=== PATIENT | female | born 1950 | race Two or more races ===

== ENCOUNTER 2020-09-30 11:30 | Inpatient (IN) | payer OTHER ==
[~2020-09-30] VITALS: Ht 162.6 cm; Wt 77.1 kg
[2020-09-30] MEDS ORDERED: COZAAR100 MG PO (15:52)
[2020-09-30] MEDS ORDERED: NORVASC5 MG PO (15:52)
[2020-09-30] MEDS ORDERED: BREO ELLIPTA 21 EACH IH (15:53)
[2020-09-30] MEDS ORDERED: PEPCID AC10 MG PO (15:53)
[2020-09-30] MEDS ORDERED: CRESTOR20 MG PO (15:53)
[2020-09-30] MEDS ORDERED: CLARITIN-D 241 EACH PO (15:53)
[2020-10-06] MEDS ORDERED: MONTELUKAST SOD10 MG (07:57)
[2020-10-06] MEDS ORDERED: PROAIR HFA8.5 GM (07:57)
[2020-10-06] MEDS ORDERED: BREO ELLIPTA I1 EACH (07:57)
[2020-10-06] MEDS ORDERED: FAMOTIDINE20 MG (07:58)
[2020-10-09] MEDS ORDERED: PRILOSEC OTC20 MG PO ×2 (10:34)
[2020-10-09] MEDS ORDERED: ULTRACET PO ×2 (10:34)
[2020-11-16] MEDS ORDERED: BREO IH (14:25)
[2020-11-16] MEDS ORDERED: PEPCID (14:26)
[2020-11-16] MEDS ORDERED: [UNRECOGNIZED DRUG - OTHER] PO (14:26)
== END 2020-10-09 11:55 | disposition home or self-care (01) | DRG 330 ==
LOC: O/R 10-06 05:59 → SURH 10-06 05:59
PROVIDERS: ADMIT Surgery; ATTEND Surgery
PROC: 0DBN0ZZ Excision of Sigmoid Colon, Open Approach (ICD-10-PCS; 2020-10-06)
PROC: 07BC0ZX Excision of Pelvis Lymphatic, Open Approach, Diagnostic (ICD-10-PCS; 2020-10-06)
PROC: 3E0F7SF Introduction of Other Gas into Respiratory Tract, Via Natural or Artificial Opening (ICD-10-PCS; 2020-10-06)
PROC: 0DBP0ZZ Excision of Rectum, Open Approach (ICD-10-PCS; principal; 2020-10-06 17:30)
PROC: 3E0F7GC Introduction of Other Therapeutic Substance into Respiratory Tract, Via Natural or Artificial Opening (ICD-10-PCS; 2020-10-07)
DX: C18.7 Malignant neoplasm of sigmoid colon (principal); K62.5 Hemorrhage of anus and rectum; R59.0 Localized enlarged lymph nodes; I10 Essential (primary) hypertension; Z20.822 Contact with and (suspected) exposure to COVID-19

== ENCOUNTER 2020-10-05 06:26 | Day surgery (SDC) | payer OTHER ==
[~2020-10-05 06:26] MED LIST: BREO ELLIPTA 21 EACH IH; CLARITIN-D 241 EACH PO; COZAAR100 MG PO; CRESTOR20 MG PO; NORVASC5 MG PO; PEPCID AC10 MG PO
[2020-10-06] MEDS ORDERED: MONTELUKAST SOD10 MG (07:57)
[2020-10-06] MEDS ORDERED: BREO ELLIPTA I1 EACH (07:57)
[2020-10-06] MEDS ORDERED: PROAIR HFA8.5 GM (07:57)
[2020-10-06] MEDS ORDERED: FAMOTIDINE20 MG (07:58)
[2020-11-16] MEDS ORDERED: BREO IH (14:25)
[2020-11-16] MEDS ORDERED: [UNRECOGNIZED DRUG - OTHER] PO (14:26)
[2020-11-16] MEDS ORDERED: PEPCID (14:26)
== END 2020-10-05 09:50 | disposition home or self-care (01) ==
LOC: AMB-ENDOS 06:26
PROVIDERS: ATTEND Surgery
DX: C18.7 Malignant neoplasm of sigmoid colon (principal); Z20.822 Contact with and (suspected) exposure to COVID-19

== ENCOUNTER 2020-11-20 06:55 | Day surgery (SDC) | payer OTHER ==
[~2020-11-20 06:55] MED LIST changes: +BREO ELLIPTA I1 EACH; +BREO IH; +FAMOTIDINE20 MG; +MONTELUKAST SOD10 MG; +PEPCID; +PRILOSEC OTC20 MG PO; +PROAIR HFA8.5 GM; +ULTRACET PO; +[UNRECOGNIZED DRUG - OTHER] PO
[2020-11-20] MEDS ORDERED: ULTRACET PO (11:44)
== END 2020-11-20 14:45 | disposition home or self-care (01) ==
LOC: CIR.AMB 06:55 → AMB-ENDOS 12:00 → CIR.AMB 12:00
PROVIDERS: ATTEND Surgery
DX: C18.7 Malignant neoplasm of sigmoid colon (principal); Z20.822 Contact with and (suspected) exposure to COVID-19
CPT/HCPCS: 36561; C1751

== ENCOUNTER → 2020-11-27 07:26 | Outpatient (CLI) | payer OTHER | END | disposition home or self-care (01) | LOC: NUCLEAR 07:00 | PROVIDERS: ATTEND Surgery | DX: C18.7 Malignant neoplasm of sigmoid colon (principal) | CPT/HCPCS: 78816; A9552 ==

== ENCOUNTER 2021-11-19 07:00 | Day surgery (SDC) | payer OTHER ==
[~2021-11-19] VITALS: Ht 160 cm; Wt 74.4 kg
[~2021-11-19 07:00] MED LIST changes: +CRESTOR10 MG; +ELIQUIS5 MG PO
[2021-11-19] MEDS ORDERED: ULTRACET PO (10:16)
== END 2021-11-19 15:15 | disposition home or self-care (01) ==
LOC: CIR.AMB 07:00
PROVIDERS: ATTEND Surgery
DX: C18.7 Malignant neoplasm of sigmoid colon (principal); Z20.822 Contact with and (suspected) exposure to COVID-19; I10 Essential (primary) hypertension; Z86.16 Personal history of COVID-19; N18.30 Chronic kidney disease, stage 3 unspecified; G62.2 Polyneuropathy due to other toxic agents; T45.1X5A Adverse effect of antineoplastic and immunosuppressive drugs, initial encounter; K21.9 Gastro-esophageal reflux disease without esophagitis